=== PATIENT | female | born 1930 | race African-American/Black ===

== ENCOUNTER 2018-06-05 09:36 | Inpatient (IN) | payer MEDICARE, MEDICAID ==
[2018-06-05] MEDS ORDERED: Zolpidem Tartrate 5 MG TAB PO PRN (11:23)
[2018-06-05] MEDS ORDERED: Dextrose 50% Abboject 50 ML SYRINGE SLOW IVP PRN (11:23)
[2018-06-05] MEDS ORDERED: Acetaminophen 325 MG TAB PO PRN (11:23)
[2018-06-05] MEDS ORDERED: Dextrose 5% in Water 1,000 ML IV PRN (11:23)
[2018-06-05] MEDS ORDERED: Ondansetron ODT 4 MG TAB PO PRN (11:23)
--- NOTE | 2018-06-05 12:18 | HP ---
PRIMARY CARE PROVIDER: Dr. Cory Sandoval. HISTORY OF PRESENT ILLNESS: Referred to [facility] by [facility] for new onset congestive heart failure. The patient [facility] [place] She said she had mucus on her chest. She did not cough. She had no chest pain, no tightness. She said she had rattling in her chest, said it was worse lying down. No fever, no chills. PAST MEDICAL HISTORY: Pertinent for hypertension, hypothyroidism, diabetes mellitus type 2, gastroesophageal reflux disease. MEDICATIONS: She takes Citrucel 500 mg a day, levothyroxine 75 mcg a day, aspirin 81 mg a day, Lumigan ophthalmic, metformin 500 mg, amlodipine 5 mg a day, hydralazine 50 mg, gabapentin 300 mg. ALLERGIES: NO KNOWN DRUG ALLERGIES. PAST SURGICAL HISTORY: She had a chest surgery for a cyst on her lung. She has had a hysterectomy and bilateral cataract surgery. FAMILY HISTORY: Negative for coronary artery disease. She has diabetes and hypertension in multiple sons. She is for over 40 years. Full code status. Surrogate decision maker is her daughter, at bedside, Christy Saunders. SOCIAL HISTORY: No tobacco. No alcohol. No illicit drugs. REVIEW OF SYSTEMS: GENERAL: She has had a little dizziness. No fainting. No headache. She has had cataract surgery. She has glaucoma, but her vision is fine. EAR, NOSE, AND THROAT: No ear pain or drainage. No nasal bleeding. No trouble swallowing. CARDIORESPIRATORY: See present illness. RESPIRATORY: No wheezing. No history of asthma. No history of lung disease. GASTROINTESTINAL: No nausea, vomiting, diarrhea, or constipation. GENITOURINARY: No hematuria or dysuria. MUSCULOSKELETAL: She swells at times in her legs. No pain in her legs. NEUROLOGICAL: No strokes, seizures, or focal weakness. PSYCHIATRIC: No anxiety or depression, but she states she is forgetful at times. SKIN: No bruises, bleeding or rash. HEME/LYMPH: No tender or swollen lymph nodes in axilla, inguinal, or cervical area. PHYSICAL EXAMINATION: GENERAL: She is alert, cooperative, pleasant lady with family at bedside. VITAL SIGNS: Blood pressure 140/76, pulse 85, respirations 16, O2 saturation 98 on room air, temperature 98.2. HEAD, EYES, EARS, NOSE, AND THROAT: Revealed pupils equal and round with implants. Extraocular movements are intact. Tympanic membranes are occluded with wax. Oral hygiene is good. Mouth is wet. NECK: Supple without jugular venous distention, adenopathy, or thyromegaly. CHEST: Clear to auscultation and percussion. HEART: Regular rate and rhythm. First and second heart sounds are clear. There are no appreciated murmurs or gallops. ABDOMEN: Soft. Bowel sounds are normal. There is no hepatosplenomegaly. No mass. No rebound. EXTREMITIES: Reveal trace edema. No cyanosis. No clubbing. PULSES: Carotid, radial, femoral, and dorsalis pedis pulses are palpable and symmetric. SKIN: Warm and dry. HEME/LYMPH: No tender or swollen lymph nodes in the axilla, inguinal, or cervical area. NEUROLOGICAL: Cranial nerves 2 through 12 intact. Deep tendon reflexes diminished. Moves all extremities. IMAGING DATA: EKG; regular sinus rhythm, left bundle branch block. Chest x-ray; cardiomegaly, no pleural effusion noted, possible pulmonary vascular congestion reviewed by me. LABORATORY DATA: Hemoglobin 10.7, white count 6.4, and platelet count 197,000. Comprehensive metabolic profile; creatinine 1.24, BUN 20, lytes balanced. Bilirubin normal, AST 47, ALT 31. Troponins normal. BNP is 624. TSH is 3.6. ADMITTING DIAGNOSIS: 1. The patient referred for congestive heart failure, has a question of pulmonary vascular congestion on chest x-ray and a modestly elevated BNP. However, her O2 saturation is 98 on room air. Her chest is clear to exam. There is no gallop rhythm. We will obtain echocardiogram to rule out congestive heart failure. 2. Shortness of breath as before, O2 saturation 98 on room air. Chest, clear. 3. Diabetes mellitus type 2. 4. Chronic kidney disease 3 versus acute kidney failure. 5. Hypertension. 6. Hypothyroidism, stable on therapy. 7. Gastroesophageal reflux disease. PLAN: 1. Echocardiogram. 2. Repeat CBC, basic metabolic profile in the morning. 3. Accu-Chek sliding scale. 4. We will give one dose of Lasix 40 mg IV. We will put in the hospital on observation basis only if I see no criteria for admission. Respiratory rate is low, O2 saturation on room air is high. Cardiorespiratory exam is normal. Job ID: [id number]
[2018-06-05 13:09] VITALS: BMI 25.5
[2018-06-05 13:20] LABS: Hemoglobin A1c 7.6 % (4.0-6.0)
[2018-06-05] MEDS: HumaLOG 300 UNITS/3 ML VIAL SC PRN (14:35)
[2018-06-05] MEDS ORDERED: Acetaminophen 500 MG TAB PO PRN (19:28)
[2018-06-05] MEDS: Brinzolamide 1% Ophth Soln 10 ml Bottle EA EYE SCH (21:05)
[2018-06-05] MEDS: hydrALAZINE 25 MG TAB PO SCH (21:06)
[2018-06-05] MEDS: Meclizine HCl 12.5 MG TAB PO SCH (21:06)
[2018-06-05] MEDS: Gabapentin 300 MG CAP PO SCH (21:06)
[2018-06-05] MEDS: Latanoprost 0.005% Ophth Soln 2.5 ml Bottle EA EYE SCH (21:30)
[2018-06-06] MEDS: Levothyroxine Sodium 75 MCG TAB PO SCH (05:53)
[2018-06-06 07:14] LABS: #Lymphocytes 1.6 thou/uL (1.20-3.40); #Monocytes 0.4 thou/uL (0.11-0.59); #Neutrophils 1.8 thou/uL (1.40-6.50); %Basophils 0.9 % (0.0-1.0); %Eosinophils 0.1 % (0.0-10.0); %Lymphocytes 41.8 % (21.0-51.0); %Monocytes 10.5 % (0.0-10.0); %Neutrophils 46.7 % (42.0-75.0); Hemoglobin 10.1 g/dL (12.0-16.0); Mean Corpuscular HGB CONC 31.7 g/dL (32.0-36.0); Mean Corpuscular Hemoglobin 29.1 pg (27.0-31.0); Mean Corpuscular Volume 91.9 fL (78.0-98.0); Mean Platelet Volume 7.3 fL (7.4-10.4); Platelet Count 204 thou/uL (130-400); RBC Distribution Width 13.1 % (11.5-14.5); Red Blood Cell (RBC) Count 3.48 mill/uL (4.20-5.40); White Blood Cell (WBC) Count 3.8 thou/uL (4.8-10.8)
[2018-06-06 07:31] LABS: Anion Gap 12 mmol/L (10-20); BUN (Urea Nitrogen) 18 mg/dL (9.8-20.1); Calc. Creatinine Clearance 45 mL/min (70-130); Carbon Dioxide 25 mmol/L (23-31); Chloride 106 mmol/L (98-107); Estimated GFR-MDRD 66; Glucose 138 mg/dL (83-110); Potassium 3.5 mmol/L (3.5-5.1); Sodium 139 mmol/L (136-145)
[2018-06-06] MEDS ORDERED: Enoxaparin Sodium 40 MG/0.4 ML SYRINGE SC SCH (09:00)
[2018-06-06] MEDS ORDERED: Amlodipine 5 MG TAB PO SCH (09:00)
[2018-06-06] MEDS: metFORMIN 500 MG TAB PO SCH ×2 (09:28→16:50)
[2018-06-06] MEDS: Aspirin 81 mg Enteric Coated Tablet PO SCH (09:29)
[2018-06-06] MEDS: Gabapentin 300 MG CAP PO SCH ×3 (09:29→21:30)
[2018-06-06] MEDS: hydrALAZINE 25 MG TAB PO SCH ×3 (09:29→21:30)
[2018-06-06] MEDS: Meclizine HCl 12.5 MG TAB PO SCH ×2 (09:30→21:30)
[2018-06-06] MEDS: Brinzolamide 1% Ophth Soln 10 ml Bottle EA EYE SCH ×2 (10:21→21:29)
[2018-06-06] MEDS ORDERED: Furosemide 20 MG/2 ML VIAL SLOW IVP SCH (11:30)
[2018-06-06] MEDS: HumaLOG 300 UNITS/3 ML VIAL SC PRN (12:34)
--- NOTE | 2018-06-06 15:07 | PRG ---
DATE OF SERVICE: 06/06/2018 SUBJECTIVE: Ms. Yulisa uY is a very pleasant female with past medical history significant for hypertension, type 2 diabetes mellitus, hypothyroidism, and left bundle-branch block dating back to 2012, who presented to the hospital with complaints of worsening shortness of breath and cough. She has also been experiencing worsening lower extremity swelling. The patient has been admitted with new onset heart failure. The patient was given IV Lasix and reports that she has been voiding frequently, and her shortness of breath is improving. Her cough is improving as well. She denies any chest pain or dizziness at this time. OBJECTIVE: VITAL SIGNS: Blood pressure 135/70, pulse 73, O2 saturation is 97% on room air. GENERAL: This is a well-appearing female, in no acute distress. HEENT: Head is atraumatic and normocephalic. Mucous membranes are moist. Extraocular eye movements intact. NECK: No JVD. No carotid bruits. Trachea is midline. CV: S1 and S2. Regular rate and rhythm. Soft systolic murmur grade 1/6. LUNGS: Regular respiratory rate and pattern, overall clear to auscultation bilaterally. ABDOMEN: Soft. Positive bowel sounds. Nontender. EXTREMITIES: +1 pitting edema to mid noland. +2 DP pulses. SKIN: Warm and dry. No rashes. LABORATORY DATA: BNP 623. White blood cell count 3.8, hemoglobin 10.1, hematocrit 32, MCV 91. Sodium 139, potassium 3.5, chloride 106, carbon dioxide 25, BUN 18, creatinine 0.97, estimated GFR 66. Hemoglobin A1c is 7.6. Troponin is negative at 0.01. ASSESSMENT: 1. 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 2. Acute congestive heart failure exacerbation, improving with IV diuresis. 3. Type 2 diabetes mellitus, hemoglobin A1c is 7.6%. 4. Hypertension. 5. Hypothyroidism. 6. Chronic anemia. PLAN: At this time, we will consult Cardiology for optimization of heart failure medications and further workup. We will continue IV diuresis for now and monitoring electrolytes and I's and O's closely. Regarding anemia, we will go ahead and obtain iron studies, folate, and B12. Further recommendations based on hospital course. Care and plan discussed with Dr. Sun who agrees with the above. Job ID: [id number]
[2018-06-06] MEDS: Carvedilol 3.125 MG TAB PO SCH (16:50)
[2018-06-06] MEDS ORDERED: Communication Order-Pharmacy FS SCH (19:00)
--- NOTE | 2018-06-06 21:09 | CON ---
DATE OF CONSULTATION: 06/06/2018 REASON FOR CONSULTATION: Congestive heart failure, depressed left ventricular function. HISTORY OF PRESENT ILLNESS: Ms. Yu is a very pleasant 87-year-old woman admitted to the hospital with difficulty breathing. She is found to have severely depressed left ventricular function. I have been consulted. Ms. Yu came to the hospital yesterday and was having some difficulty breathing. Chest x-ray showed cephalization. She received diuretic therapy and felt better. Did not have chest pain or pressure. The patient is feeling better today, but the ejection fraction is found to be 15% to 20% on echocardiogram. PAST HISTORY: 1. Hypertension. 2. Hypothyroidism. 3. Diabetes. 4. Esophageal reflux. MEDICATIONS: 1. Citrucel. 2. Levothyroxine. 3. Aspirin. 4. Metformin. 5. Amlodipine. 6. Hydralazine. 7. Gabapentin. ALLERGIES: NONE KNOWN. PAST SURGICAL HISTORY: Cyst on her lung, hysterectomy, and bilateral cataract surgery. FAMILY HISTORY: Negative for heart disease at a young age. SOCIAL HISTORY: No tobacco. No alcohol. No drugs. REVIEW OF SYSTEMS: CONSTITUTIONAL: Feels some lightheadedness when she gets up quickly, also some vertigo-type symptoms. PULMONARY: No wheezing. CARDIAC: As outlined above. GASTROINTESTINAL: No nausea, vomiting, or diarrhea. SKIN: No rashes. NEUROLOGIC: No unilateral weakness or numbness. PSYCHIATRIC: No unusual depression or anxiety. HEMATOLOGIC: No unusual bruising. GENITOURINARY: No burning with urination. PHYSICAL EXAMINATION: GENERAL: This is a pleasant elderly woman, , in no distress. VITAL SIGNS: Blood pressure 112/63, pulse 80, it is regular. EYES: Sclerae nonicteric. MOUTH: Mucous membranes moist. NECK: Supple. No lymphadenopathy. LUNGS: Clear. CARDIAC: Normal S1, normal S2. There is no murmur, rub, or gallop. ABDOMEN: Soft and nontender. EXTREMITIES: No clubbing or cyanosis. There is no edema. SKIN: Warm and dry. Good peripheral pulses. DIAGNOSTIC DATA: EKG; sinus rhythm with a left bundle branch block pattern, QRS 0.15. Chest x-ray shows cardiomegaly with pulmonary vascular congestion. LABORATORY DATA: Potassium is 3.5. BUN is 18, creatinine 0.97. ASSESSMENT: 1. Congestive heart failure. 2. Suspect cardiomyopathy. 3. Left bundle branch block appears chronic. 4. Diabetes. 5. Hypertension. PLAN: 1. Stop amlodipine. 2. Substitute lisinopril. 3. Add carvedilol. 4. Continue hydralazine. 5. Recommend she proceed to cardiac catheterization. The patient agrees. 6. Discussed LifeVest. Discussed that she was at a small risk of sudden cardiac . Her yearly risk would be approximately 4% to 5%. Therefore, her 90-day risk would likely be in the 1% range. Looking back, this is probably a very chronic problem. She had a left bundle branch block in 2016. The patient declines LifeVest. Job ID: [id number]
[2018-06-06] MEDS: Latanoprost 0.005% Ophth Soln 2.5 ml Bottle EA EYE SCH (21:28)
[2018-06-06] MEDS: Lisinopril 5 MG TAB PO SCH (21:30)
[2018-06-07 05:53] LABS: Anion Gap 13 mmol/L (10-20); BUN (Urea Nitrogen) 24 mg/dL (9.8-20.1); Calc. Creatinine Clearance 32 mL/min (70-130); Calcium 9.2 mg/dL (7.8-10.44); Carbon Dioxide 24 mmol/L (23-31); Chloride 105 mmol/L (98-107); Estimated GFR-MDRD 46; Glucose 116 mg/dL (83-110); Iron 34 ug/dL (50-170); Potassium 3.6 mmol/L (3.5-5.1); Sodium 138 mmol/L (136-145)
[2018-06-07] MEDS ORDERED: Sodium Chloride 0.9% 1,000 ML IV SCH ×2 (06:00→10:00)
[2018-06-07] MEDS: Lisinopril 5 MG TAB PO SCH ×2 (06:02→21:41)
[2018-06-07] MEDS: Levothyroxine Sodium 75 MCG TAB PO SCH (06:02)
[2018-06-07] MEDS: Furosemide 20 MG/2 ML VIAL SLOW IVP SCH ×2 (06:02→15:05)
[2018-06-07] MEDS: Meclizine HCl 12.5 MG TAB PO SCH ×2 (06:04→21:13)
[2018-06-07] MEDS: Aspirin 81 mg Enteric Coated Tablet PO SCH (06:04)
[2018-06-07] MEDS: Carvedilol 3.125 MG TAB PO SCH (06:04)
[2018-06-07] MEDS: hydrALAZINE 25 MG TAB PO SCH ×3 (06:04→21:41)
[2018-06-07] MEDS: Gabapentin 300 MG CAP PO SCH ×3 (06:04→21:12)
[2018-06-07] MEDS: Brinzolamide 1% Ophth Soln 10 ml Bottle EA EYE SCH ×2 (06:06→21:40)
[2018-06-07 06:23] LABS: Folate (Folic Acid) 13.4 ng/mL (7.0-31.4)
[2018-06-07] MEDS ORDERED: Heparin 10,000 UNITS/1 ML VIAL ONE (08:43)
[2018-06-07] MEDS ORDERED: Nitroglycerin 100MG/250ML BOT 0 ML ONE (08:44)
[2018-06-07] MEDS ORDERED: Protamine Sulfate 50 MG/5 ML VIAL ONE (08:44)
[2018-06-07] MEDS ORDERED: Fentanyl 100 MCG/2 ML VIAL ONE (09:26)
[2018-06-07] MEDS ORDERED: Midazolam HCl 2 mg/2 ml Vial ONE (09:26)
[2018-06-07] MEDS ORDERED: Acetaminophen/Codeine 30-300mg Tablet PO PRN ×2 (09:59)
[2018-06-07] MEDS ORDERED: Nitroglycerin 0.4 MG TAB (25 Tab Bottle) SL PRN (09:59)
[2018-06-07] MEDS ORDERED: Sodium Chloride 0.9% 200 ML IV PRN (09:59)
--- NOTE | 2018-06-07 10:54 | PDOC.PN ---
- Subjective Encounter Start Date: 06/07/18 Encounter Start Time: 10:52 Subjective: No new complaint. Feeling better. -: S/p Cardiac cath. No chest pain. - Objective Resuscitation Status - Order Detail: 06/05/18 11:19 Resuscitation Status Routine Resuscitation Status: FULL: Full Resuscitation Discussed with: adriana decker Vital Signs & Weight: Vital Signs (12 hours) Temp Pulse Resp BP Pulse Ox 06/07/18 10:05 97.4 F L 66 14 103/56 L 96 06/07/18 07:50 98.1 F 73 18 103/55 L 97 06/07/18 04:00 97.8 F 75 17 121/56 L 98 Weight Weight 143 lb 3.2 oz I&O: 06/06/18 06/07/18 06/08/18 06:59 06:59 06:59 Intake Total 900 1952 Output Total 600 2300 Balance 300 -348 Result Diagrams: 06/06/18 06:37 06/07/18 04:46 Additional Labs: Accuchecks 06/07/18 06/06/18 06/06/18 05:28 20:08 17:02 POC Glucose 126 H 121 H 93 06/06/18 11:26 POC Glucose 239 H Phys Exam - Physical Examination Constitutional: NAD HEENT: PERRLA, moist MMs Neck: supple, full ROM Respiratory: no wheezing, no rales fair air entry bilaterally Cardiovascular: RRR soft systolic murmur noted Gastrointestinal: soft, non-tender, no distention, positive bowel sounds Musculoskeletal: no edema, pulses present Neurological: non-focal, moves all 4 limbs Psychiatric: normal affect, A&O x 3 Dx/Plan (1) Acute systolic (congestive) heart failure Code(s): I50.21 - ACUTE SYSTOLIC (CONGESTIVE) HEART FAILURE Status: Acute (2) Cardiomyopathy Code(s): I42.9 - CARDIOMYOPATHY, UNSPECIFIED Status: Acute Comment: S/p cardiac cath which showed normal coronaries. etiology is unclear. EF 15-20% (3) Moderate mitral regurgitation Code(s): I34.0 - NONRHEUMATIC MITRAL (VALVE) INSUFFICIENCY Status: Acute (4) HTN (hypertension) Code(s): I10 - ESSENTIAL (PRIMARY) HYPERTENSION Status: Acute (5) Diabetes mellitus Code(s): E11.9 - TYPE 2 DIABETES MELLITUS WITHOUT COMPLICATIONS Status: Acute (6) GERD (gastroesophageal reflux disease) Code(s): K21.9 - GASTRO-ESOPHAGEAL REFLUX DISEASE WITHOUT ESOPHAGITIS Status: Acute (7) Hypothyroidism Code(s): E03.9 - HYPOTHYROIDISM, UNSPECIFIED Status: Acute (8) CKD (chronic kidney disease), stage III Code(s): N18.3 - CHRONIC KIDNEY DISEASE, STAGE 3 (MODERATE) Status: Acute - Plan Continue IVF given Contrast study -: DC metformin. -: Continue lasix. lisinopril and coreg. -: Continue sliding scale insulin. -: Repeat renal function in the am. * .
[2018-06-07] MEDS ORDERED: Iopamidol 370 76% 100 ML VIAL ONE (11:22)
[2018-06-07] MEDS: Acetaminophen 500 MG TAB PO PRN (12:00)
[2018-06-07] MEDS ORDERED: metFORMIN 500 MG TAB PO SCH (17:00)
[2018-06-07] MEDS: Carvedilol 6.25 MG TAB PO SCH (17:46)
[2018-06-07] MEDS: HumaLOG 300 UNITS/3 ML VIAL SC PRN (17:54)
[2018-06-07] MEDS: Latanoprost 0.005% Ophth Soln 2.5 ml Bottle EA EYE SCH (21:11)
[2018-06-08] MEDS: Levothyroxine Sodium 75 MCG TAB PO SCH (05:22)
[2018-06-08 07:11] LABS: Anion Gap 11 mmol/L (10-20); BUN (Urea Nitrogen) 23 mg/dL (9.8-20.1); Calc. Creatinine Clearance 32 mL/min (70-130); Calcium 9.6 mg/dL (7.8-10.44); Carbon Dioxide 27 mmol/L (23-31); Chloride 105 mmol/L (98-107); Estimated GFR-MDRD 45; Glucose 125 mg/dL (83-110); Potassium 3.9 mmol/L (3.5-5.1); Sodium 139 mmol/L (136-145)
[2018-06-08] MEDS: Lisinopril 5 MG TAB PO SCH ×2 (08:32→21:42)
[2018-06-08] MEDS: Carvedilol 6.25 MG TAB PO SCH ×2 (08:32→17:12)
[2018-06-08] MEDS: Gabapentin 300 MG CAP PO SCH ×3 (08:33→21:44)
[2018-06-08] MEDS: Meclizine HCl 12.5 MG TAB PO SCH ×2 (08:33→21:43)
[2018-06-08] MEDS: hydrALAZINE 25 MG TAB PO SCH ×3 (08:33→21:45)
[2018-06-08] MEDS: Brinzolamide 1% Ophth Soln 10 ml Bottle EA EYE SCH ×2 (08:34→21:47)
[2018-06-08] MEDS: Acetaminophen 500 MG TAB PO PRN (08:40)
--- NOTE | 2018-06-08 10:01 | PDOC.PN ---
- Subjective Encounter Start Date: 06/08/18 Encounter Start Time: 10:00 Subjective: Complain of generalized body aches and weakness -: No SOB, chest pain or fever. - Objective Resuscitation Status - Order Detail: 06/05/18 11:19 Resuscitation Status Routine Resuscitation Status: FULL: Full Resuscitation Discussed with: adriana decker Vital Signs & Weight: Vital Signs (12 hours) Temp Pulse Resp BP Pulse Ox 06/08/18 08:38 99.8 F H 83 18 110/56 L 96 06/08/18 04:00 98.1 F 70 20 113/59 L 96 06/07/18 23:53 98.2 F 64 16 102/57 L 97 Weight Weight 145 lb 9 oz I&O: 06/07/18 06/08/18 06/09/18 06:59 06:59 06:59 Intake Total 1952 1200 Output Total 2300 850 Balance -348 350 Result Diagrams: 06/06/18 06:37 06/08/18 05:40 Additional Labs: Accuchecks 06/08/18 06/07/18 06/07/18 05:56 20:23 16:49 POC Glucose 157 H 211 H 155 H 06/07/18 11:36 POC Glucose 134 H Phys Exam - Physical Examination elderly female in no distress. fatigued HEENT: moist MMs Neck: supple Respiratory: no wheezing, no rhonchi fair air entry bilaterally with some transmitted sound Cardiovascular: RRR Gastrointestinal: soft, non-tender, no distention, positive bowel sounds Musculoskeletal: no edema, pulses present Neurological: non-focal, moves all 4 limbs Psychiatric: A&O x 3 Dx/Plan (1) Acute systolic (congestive) heart failure Code(s): I50.21 - ACUTE SYSTOLIC (CONGESTIVE) HEART FAILURE Status: Acute (2) Cardiomyopathy Code(s): I42.9 - CARDIOMYOPATHY, UNSPECIFIED Status: Acute Comment: S/p cardiac cath which showed normal coronaries. etiology is unclear. EF 15-20% (3) Moderate mitral regurgitation Code(s): I34.0 - NONRHEUMATIC MITRAL (VALVE) INSUFFICIENCY Status: Acute (4) HTN (hypertension) Code(s): I10 - ESSENTIAL (PRIMARY) HYPERTENSION Status: Acute (5) Diabetes mellitus Code(s): E11.9 - TYPE 2 DIABETES MELLITUS WITHOUT COMPLICATIONS Status: Acute (6) GERD (gastroesophageal reflux disease) Code(s): K21.9 - GASTRO-ESOPHAGEAL REFLUX DISEASE WITHOUT ESOPHAGITIS Status: Acute (7) Hypothyroidism Code(s): E03.9 - HYPOTHYROIDISM, UNSPECIFIED Status: Acute (8) CKD (chronic kidney disease), stage III Code(s): N18.3 - CHRONIC KIDNEY DISEASE, STAGE 3 (MODERATE) Status: Acute Comment: Stable (9) Physical deconditioning Code(s): R53.81 - OTHER MALAISE Status: Acute - Plan Continue current medications -: consult PT -: continue to monitor renal function, -: patient now wants life vest. Will relay to cardioogy. -: Consult case mgt to help with discharge disposition * .
[2018-06-08] MEDS: HumaLOG 300 UNITS/3 ML VIAL SC PRN (12:16)
--- NOTE | 2018-06-08 14:10 | PDOC.CTH ---
Cardiology Progress Note - Subjective She is doing well. Breathing at baseline. - Objective Vital Signs Temp Pulse Pulse Resp BP BP BP 06/08/18 12:14 107/55 L 06/08/18 12:05 99.3 F 88 16 101/55 L 06/08/18 10:49 84 103/56 L 128/61 06/08/18 08:38 99.8 F H 83 18 110/56 L 06/08/18 04:00 98.1 F 70 20 113/59 L BP BP Pulse Ox 06/08/18 12:14 102/52 L 108/59 L 06/08/18 12:05 98 06/08/18 10:49 06/08/18 08:38 96 06/08/18 04:00 96 Weight 145 lb 9 oz 06/07/18 06/08/18 06/09/18 06:59 06:59 06:59 Intake Total 1952 1200 Output Total 2300 850 Balance -348 350 - Physical Examination General/Neuro: alert & oriented x3, NAD Neck: no JVD present Lungs: CTA, unlabored respirations Heart: RRR Abdomen: NT/ND Extremities: + edema B (trace) - Telemetry Telemetry Rhythm: NSR - Labs Result Diagrams: 06/06/18 06:37 06/08/18 05:40 Troponin/CKMB Troponin I 0.010 ng/mL (< 0.028) 06/05/18 10:28 - Assessment/Plan 1. DilatedCM EF at 154-20% 2. Non ischemic CM 3. Normal coronaries. PLAN: - Lifevest before discharge - Continue current meds. - Follow up with in 1-2 months - Home after lifevest set up.
[2018-06-08] MEDS: Latanoprost 0.005% Ophth Soln 2.5 ml Bottle EA EYE SCH (21:47)
[2018-06-09] MEDS: Levothyroxine Sodium 75 MCG TAB PO SCH (06:02)
[2018-06-09 06:08] LABS: #Lymphocytes 2.2 thou/uL (1.20-3.40); #Monocytes 0.6 thou/uL (0.11-0.59); #Neutrophils 2.7 thou/uL (1.40-6.50); %Basophils 0.6 % (0.0-1.0); %Lymphocytes 39.6 % (21.0-51.0); %Monocytes 11.1 % (0.0-10.0); %Neutrophils 48.6 % (42.0-75.0); Hemoglobin 10.4 g/dL (12.0-16.0); Mean Corpuscular HGB CONC 32.5 g/dL (32.0-36.0); Mean Corpuscular Hemoglobin 29.4 pg (27.0-31.0); Mean Corpuscular Volume 90.5 fL (78.0-98.0); Mean Platelet Volume 7.5 fL (7.4-10.4); Platelet Count 192 thou/uL (130-400); RBC Distribution Width 13.2 % (11.5-14.5); Red Blood Cell (RBC) Count 3.55 mill/uL (4.20-5.40); White Blood Cell (WBC) Count 5.5 thou/uL (4.8-10.8)
[2018-06-09 06:25] LABS: Anion Gap 12 mmol/L (10-20); BUN (Urea Nitrogen) 28 mg/dL (9.8-20.1); Calc. Creatinine Clearance 30 mL/min (70-130); Calcium 9.2 mg/dL (7.8-10.44); Carbon Dioxide 26 mmol/L (23-31); Chloride 105 mmol/L (98-107); Estimated GFR-MDRD 42; Glucose 128 mg/dL (83-110); Potassium 3.6 mmol/L (3.5-5.1); Sodium 139 mmol/L (136-145)
--- NOTE | 2018-06-09 08:53 | PDOC.PN ---
- Subjective Encounter Start Date: 06/09/18 Encounter Start Time: 08:51 Subjective: No new problem. -: had lifevrest fitted yesterday. -: Denied chest pain or SOB. Admitted to fatigued - Objective Resuscitation Status - Order Detail: 06/05/18 11:19 Resuscitation Status Routine Resuscitation Status: FULL: Full Resuscitation Discussed with: adriana decker Vital Signs & Weight: Vital Signs (12 hours) Temp Pulse Resp BP Pulse Ox 06/09/18 04:00 97.6 F 72 16 103/55 L 99 Weight Weight 145 lb 9 oz I&O: 06/08/18 06/09/18 06/10/18 06:59 06:59 06:59 Intake Total 1200 987 Output Total 850 1280 Balance 350 -293 Result Diagrams: 06/09/18 05:36 06/09/18 05:36 Additional Labs: Accuchecks 06/09/18 06/08/18 06/08/18 05:47 20:37 16:36 POC Glucose 134 H 189 H 115 H 06/08/18 10:30 POC Glucose 270 H Phys Exam - Physical Examination elderly female in no distress. afenrile anicteric and acyanotic. HEENT: moist MMs Neck: no JVD, supple Respiratory: no rhonchi Fair air entry with right base crackles posteriorly Cardiovascular: RRR Gastrointestinal: soft, non-tender, no distention, positive bowel sounds Musculoskeletal: no edema, pulses present Neurological: non-focal, moves all 4 limbs ambulant with unsteady gait Psychiatric: A&O x 3 Dx/Plan (1) Acute systolic (congestive) heart failure Code(s): I50.21 - ACUTE SYSTOLIC (CONGESTIVE) HEART FAILURE Status: Acute Comment: EF of 15-10 (2) Cardiomyopathy Code(s): I42.9 - CARDIOMYOPATHY, UNSPECIFIED Status: Acute Comment: S/p cardiac cath which showed normal coronaries. etiology is unclear. EF 15-20% (3) Moderate mitral regurgitation Code(s): I34.0 - NONRHEUMATIC MITRAL (VALVE) INSUFFICIENCY Status: Acute (4) HTN (hypertension) Code(s): I10 - ESSENTIAL (PRIMARY) HYPERTENSION Status: Acute (5) Diabetes mellitus Code(s): E11.9 - TYPE 2 DIABETES MELLITUS WITHOUT COMPLICATIONS Status: Acute (6) GERD (gastroesophageal reflux disease) Code(s): K21.9 - GASTRO-ESOPHAGEAL REFLUX DISEASE WITHOUT ESOPHAGITIS Status: Acute (7) Hypothyroidism Code(s): E03.9 - HYPOTHYROIDISM, UNSPECIFIED Status: Acute (8) CKD (chronic kidney disease), stage III Code(s): N18.3 - CHRONIC KIDNEY DISEASE, STAGE 3 (MODERATE) Status: Acute Comment: Stable (9) Physical deconditioning Code(s): R53.81 - OTHER MALAISE Status: Acute (10) Gait instability Code(s): R26.81 - UNSTEADINESS ON FEET Status: Acute - Plan increase lisinopril to 10 bid. DC hydralazine with a view to optimize ACEI -: Continue coreg. -: Started ASA. -: Awaiting PT eval. -: patient lives alone. Open to SNF before returning home. Monitor renal funct * .
[2018-06-09] MEDS: Gabapentin 300 MG CAP PO SCH ×3 (09:43→20:56)
[2018-06-09] MEDS: Meclizine HCl 12.5 MG TAB PO SCH ×2 (09:43→20:55)
[2018-06-09] MEDS: Furosemide 20 MG TAB PO SCH (09:44)
[2018-06-09] MEDS: Brinzolamide 1% Ophth Soln 10 ml Bottle EA EYE SCH ×2 (09:44→20:53)
[2018-06-09] MEDS: Carvedilol 6.25 MG TAB PO SCH ×2 (09:44→17:44)
[2018-06-09] MEDS: HumaLOG 300 UNITS/3 ML VIAL SC PRN (13:43)
[2018-06-09] MEDS: Lisinopril 10 MG TAB PO SCH ×2 (13:59→20:55)
[2018-06-09] MEDS: Aspirin 81 mg Enteric Coated Tablet PO SCH (13:59)
--- NOTE | 2018-06-09 17:16 | PDOC.CTH ---
Cardiology Progress Note - Subjective No new issues. Breathing at baseline. Had her LIfevest fitted and her hands are too weak to change the batteries on the lifevest. - Objective Vital Signs Temp Pulse Pulse Pulse Resp BP BP 06/09/18 13:41 98.2 F 78 18 06/09/18 10:39 80 82 120/57 L 106/56 L 06/09/18 08:00 97.4 F L 75 18 BP BP Pulse Ox 06/09/18 13:41 109/58 L 98 06/09/18 10:39 06/09/18 08:00 125/60 96 Weight 145 lb 9 oz 06/08/18 06/09/18 06/10/18 06:59 06:59 06:59 Intake Total 1200 987 480 Output Total 850 1280 Balance 350 -293 480 - Physical Examination General/Neuro: alert & oriented x3, NAD Neck: no JVD present Lungs: unlabored respirations Heart: RRR Abdomen: NT/ND Extremities: other: (no edema) - Telemetry Telemetry Rhythm: NSR - Labs Result Diagrams: 06/09/18 05:36 06/09/18 05:36 Troponin/CKMB Troponin I 0.010 ng/mL (< 0.028) 06/05/18 10:28 - Assessment/Plan 1. DilatedCM EF at 15-20% 2. Non ischemic CM 3. Normal coronaries. PLAN: - Lifevest in place, she will go to inpatient rehab vs SNF and hopefully she will get strong enough to change the battery on the lifevest, if this is not the case then she will take off copm[pletely and go home without is. - Continue current meds. - Follow up with in 1-2 months - Placement.
[2018-06-09] MEDS: Latanoprost 0.005% Ophth Soln 2.5 ml Bottle EA EYE SCH (20:58)
[2018-06-10] MEDS: Levothyroxine Sodium 75 MCG TAB PO SCH (05:56)
[2018-06-10 07:09] LABS: Anion Gap 11 mmol/L (10-20); BUN (Urea Nitrogen) 26 mg/dL (9.8-20.1); Calc. Creatinine Clearance 35 mL/min (70-130); Calcium 9.3 mg/dL (7.8-10.44); Carbon Dioxide 27 mmol/L (23-31); Chloride 106 mmol/L (98-107); Estimated GFR-MDRD 50; Glucose 158 mg/dL (83-110); Potassium 3.8 mmol/L (3.5-5.1); Sodium 140 mmol/L (136-145)
[2018-06-10] MEDS: Carvedilol 6.25 MG TAB PO SCH ×2 (08:31→16:08)
[2018-06-10] MEDS: Aspirin 81 mg Enteric Coated Tablet PO SCH (08:31)
[2018-06-10] MEDS: Lisinopril 10 MG TAB PO SCH (08:31)
[2018-06-10] MEDS: Gabapentin 300 MG CAP PO SCH ×2 (08:31→11:24)
[2018-06-10] MEDS: Meclizine HCl 12.5 MG TAB PO SCH (08:31)
[2018-06-10] MEDS: Furosemide 20 MG TAB PO SCH (08:31)
[2018-06-10] MEDS: Brinzolamide 1% Ophth Soln 10 ml Bottle EA EYE SCH (08:32)
--- NOTE | 2018-06-10 10:21 | PRG ---
DATE OF SERVICE: 06/10/2018 SUBJECTIVE: Ms. Yu is feeling fine. No chest pain or pressure. OBJECTIVE: VITAL SIGNS: Her blood pressure is 126/67, pulse is 80, it is regular. LUNGS: Clear. CARDIAC: Normal S1, normal S2. ABDOMEN: Soft, nontender. EXTREMITIES: There is no edema. LABORATORY DATA: The creatinine is 1.23. ASSESSMENT: 1. Congestive heart failure, systolic, acute on chronic, now stable. 2. Renal function stabilized. Creatinine down to 1.23. 3. Left bundle-branch block. PLAN: 1. She has been fitted for LifeVest. 2. She is on carvedilol 6.25 mg twice a day. 3. Furosemide 20 mg a day. 4. Lisinopril 10 mg twice a day. 5. She is going to go to a swing bed. I would like her to come see us in the office in about a month with ultimately consideration for biventricular pacemaker defibrillator. 6. If tolerated, we will try to increase the carvedilol to 12.5 mg twice a day in the next followup. Job ID: [id number]
[2018-06-10] MEDS: HumaLOG 300 UNITS/3 ML VIAL SC PRN (12:16)
--- NOTE | 2018-06-10 15:30 | PDOC.PN ---
- Subjective Encounter Start Date: 06/10/18 Encounter Start Time: 09:00 Subjective: no chest pain or sob -: feels better - Objective Resuscitation Status - Order Detail: 06/05/18 11:19 Resuscitation Status Routine Resuscitation Status: FULL: Full Resuscitation Discussed with: adriana CASILLAS Reviewed: Yes Vital Signs & Weight: Vital Signs (12 hours) Temp Pulse Pulse Pulse Resp BP BP 06/10/18 11:25 98.2 F 74 17 06/10/18 09:42 85 80 118/60 125/83 06/10/18 07:30 97.6 F 83 16 06/10/18 03:31 98.2 F 80 18 BP BP Pulse Ox 06/10/18 11:25 90/52 L 100 06/10/18 09:42 06/10/18 07:30 126/67 98 06/10/18 03:31 130/60 97 Weight Weight 147 lb I&O: 06/09/18 06/10/18 06/11/18 06:59 06:59 06:59 Intake Total 987 1330 Output Total 1280 1450 Balance -293 -120 Result Diagrams: 06/09/18 05:36 06/10/18 06:26 Additional Labs: Accuchecks 06/10/18 06/10/18 06/09/18 10:57 05:33 20:23 POC Glucose 338 H 137 H 270 H 06/09/18 16:55 POC Glucose 74 Phys Exam - Physical Examination HEENT: PERRLA, moist MMs Neck: no JVD, supple Respiratory: no wheezing, no rales Cardiovascular: RRR, no significant murmur Gastrointestinal: soft, non-tender, positive bowel sounds Musculoskeletal: no edema, pulses present Neurological: non-focal, moves all 4 limbs Psychiatric: normal affect, A&O x 3 Dx/Plan (1) Acute systolic (congestive) heart failure Code(s): I50.21 - ACUTE SYSTOLIC (CONGESTIVE) HEART FAILURE Status: Acute Comment: EF of 15-10 (2) Cardiomyopathy Code(s): I42.9 - CARDIOMYOPATHY, UNSPECIFIED Status: Acute Comment: S/p cardiac cath which showed normal coronaries. etiology is unclear. EF 15-20% (3) Diabetes mellitus Code(s): E11.9 - TYPE 2 DIABETES MELLITUS WITHOUT COMPLICATIONS Status: Chronic Qualifiers: Diabetes mellitus type: type 2 Diabetes mellitus moth exterminator insulin use: without moth exterminator use (4) GERD (gastroesophageal reflux disease) Code(s): K21.9 - GASTRO-ESOPHAGEAL REFLUX DISEASE WITHOUT ESOPHAGITIS Status: Chronic Qualifiers: Esophagitis presence: esophagitis presence not specified Qualified Code(s) : K21.9 - Gastro-esophageal reflux disease without esophagitis (5) HTN (hypertension) Code(s): I10 - ESSENTIAL (PRIMARY) HYPERTENSION Status: Chronic Qualifiers: Hypertension type: essential hypertension Qualified Code(s): I10 - Essential (primary) hypertension (6) Hypothyroidism Code(s): E03.9 - HYPOTHYROIDISM, UNSPECIFIED Status: Chronic Qualifiers: Hypothyroidism type: unspecified Qualified Code(s): E03.9 - Hypothyroidism , unspecified (7) Moderate mitral regurgitation Code(s): I34.0 - NONRHEUMATIC MITRAL (VALVE) INSUFFICIENCY Status: Chronic (8) Physical deconditioning Code(s): R53.81 - OTHER MALAISE Status: Acute - Plan hemostable -: is wearing lifevest, sometimes feels its heavy around her -: dc plan to [facility] today -: meds reconciled, she has ambulated around 150ft with rw -: on asp, coreg, lisinopril. No diuretics due to low sbp * . may decrease lisinopril to 5mg daily if still hypotensive at [facility]. Review of Systems - Medications/Allergies Allergies/Adverse Reactions: Allergies Allergy/AdvReac Type Severity Reaction Status Date / Time No Known Drug Allergies Allergy Verified 06/05/18 14:11 Medications: Current Medications Acetaminophen (Tylenol) 500 mg PO Q6H PRN PRN Reason: Headache/Fever Last Admin: 06/08/18 08:40 Dose: 500 mg Acetaminophen/Codeine Phosphate (Tylenol #3) 1 tab PO Q4H PRN PRN Reason: Mild Pain (1-3) Last Admin: 06/10/18 10:16 Dose: 1 tab Acetaminophen/Codeine Phosphate (Tylenol #3) 2 tab PO Q4H PRN PRN Reason: Moderate Pain (4-6) Aspirin (Ecotrin) 81 mg PO DAILY [facility] Last Admin: 06/10/18 08:31 Dose: 81 mg Brinzolamide (Azopt 1% Ophth Soln) 0 drop EA EYE BID [facility] Last Admin: 06/10/18 08:32 Dose: 1 drop Carvedilol (Coreg) 6.25 mg PO BID[facility] Last Admin: 06/10/18 08:31 Dose: 6.25 mg Dextrose/Water (Dextrose 50%) 25 gm SLOW IVP PRN PRN PRN Reason: Hypoglycemia Furosemide (Lasix) 20 mg PO DAILY [facility] Last Admin: 06/10/18 08:31 Dose: 20 mg Gabapentin (Neurontin) 300 mg PO 0900,1200 [facility] Last Admin: 06/10/18 11:24 Dose: 300 mg Gabapentin (Neurontin) 600 mg PO [facility] Last Admin: 06/09/18 20:56 Dose: 600 mg Glucagon (Glucagon) 1 mg IM PRN PRN PRN Reason: Hypoglycemia Dextrose/Water (D5w) 1,000 mls @ 0 mls/hr IV .Q0M PRN PRN Reason: Hypoglycemia Insulin Human Lispro (Humalog) 0 units SC .MILD SLIDING SCALE PRN PRN Reason: Mild Correctional Scale Last Admin: 06/10/18 12:16 Dose: 5 unit Latanoprost (Xalatan 0.005% Oph Soln) 1 drop EA EYE [facility] Last Admin: 06/09/18 20:58 Dose: 1 drop Levothyroxine Sodium (Synthroid) 75 mcg PO 0600 [facility] Last Admin: 06/10/18 05:56 Dose: 75 mcg Lisinopril (Zestril) 10 mg PO BID [facility] Last Admin: 06/10/18 08:31 Dose: 10 mg Meclizine HCl (Antivert) 12.5 mg PO BID [facility] Last Admin: 06/10/18 08:31 Dose: 12.5 mg Nitroglycerin (Nitrostat) 0.4 mg SL Q5MIN PRN PRN Reason: Chest Pain Ondansetron HCl (Zofran Odt) 4 mg PO Q6H PRN PRN Reason: Nausea/Vomiting Pantoprazole Sodium (Protonix) 40 mg PO DAILYPRN PRN PRN Reason: Dyspepsia Zolpidem Tartrate (Ambien) 5 mg PO HSPRN PRN PRN Reason: Insomnia Last Admin: 06/05/18 21:06 Dose: 5 mg
[2018-06-10 15:31] VITALS: BP 114/66; TEMP 97.7
--- NOTE | 2018-06-11 11:20 | DIS ---
DATE OF ADMISSION: 06/06/2018 DATE OF DISCHARGE: 06/10/2018 DISCHARGE DISPOSITION: To [facility]. PRIMARY DISCHARGE DIAGNOSES: Acute congestive heart failure exacerbation with ejection fraction of 15%, nonischemic cardiomyopathy, diabetes mellitus type 2, gastroesophageal reflux disease, hypertension, hypothyroidism, moderate mitral regurgitation, and deconditioning. PROCEDURES DONE DURING HOSPITALIZATION: Echo with 2D Doppler done showed EF of 15% to 20%, left ventricular size was [id number] increased, moderate mitral regurgitation was seen. Coronary angiogram done by Dr. Seals showed normal coronaries. LABORATORY DATA: H and H 10 and 32, platelet count 192, and MCV is 90. Discharge BUN and creatinine are 26 and 1.2. Vitamin B12 of 404, folic acid 13.4, and TSH 3.45. BNP was 623. HbA1c 7.6. DISCHARGE MEDICATIONS: 1. Aspirin 81 mg p.o. daily. 2. Lumigan eye drops to both eyes at bedtime. 3. Azopt eye drop to both eyes twice daily. 4. Gabapentin 300 mg q.a.m. and 600 mg p.o. at bedtime. 5. Levothyroxine 75 mcg p.o. q.a.m. 6. Meclizine 12.5 mg twice daily. 7. Metformin 500 mg p.o. twice daily. 8. Omeprazole 20 mg p.o. daily. 9. Coreg 6.25 mg p.o. twice daily. 10. Lisinopril 10 mg twice daily. 11. Ferrous sulfate 325 mg p.o. daily. ALLERGIES: NO KNOWN DRUG ALLERGIES. DISCHARGE PLAN: The patient to follow up with Dr. Clemons as advised and primary care physician in 1 week. BRIEF COURSE DURING HOSPITALIZATION: The patient initially got admitted on the after she went to [facility] with complaints of weakness and dizziness. She also had shortness of breath. The patient was found to be in CHF exacerbation. She has had echo done, which showed ejection fraction of 15% to 20%. The patient has had consultation with Dr. Clemons/Arnel. The patient had coronary angiogram done due to new onset congestive heart failure and was found to have had normal coronaries. The patient likely has nonischemic cardiomyopathy with EF of 15%. A LifeVest was placed on her. Her medications have been optimized. The patient has deconditioning and she is being discharged to [facility] prior to going home. She is hemodynamically stable. Please see a [id number] documentation for the day of discharge on [employer]. A total of 35 minutes was spent on discharge plan. Job ID: [id number]
== END 2018-06-10 17:02 | DRG 286 ==
LOC: ERS 09:36 → ERHOLD 11:02 → 2SW 12:58 → OBSVTOIN 06-06 14:16 → 2NO 06-06 17:56
PROVIDERS: ADMIT Internal Medicine; ATTEND Internal Medicine
PROC: 4A023N7 Measurement of Cardiac Sampling and Pressure, Left Heart, Percutaneous Approach (ICD-10-PCS; principal; 2018-06-06)
PROC: B2111ZZ Fluoroscopy of Multiple Coronary Arteries using Low Osmolar Contrast (ICD-10-PCS; 2018-06-06)
DX: I42.0 Dilated cardiomyopathy (principal); I50.23 Acute on chronic systolic (congestive) heart failure; I13.0 Hypertensive heart and chronic kidney disease with heart failure and stage 1 through stage 4 chronic kidney disease, or unspecified chronic kidney disease; E11.22 Type 2 diabetes mellitus with diabetic chronic kidney disease; E03.9 Hypothyroidism, unspecified; K21.9 Gastro-esophageal reflux disease without esophagitis; I44.7 Left bundle-branch block, unspecified; N18.3 Chronic kidney disease, stage 3 (moderate); I34.0 Nonrheumatic mitral (valve) insufficiency; R26.81 Unsteadiness on feet
CPT/HCPCS: 36415; 36416; 80048; 82607; 82746; 83036; 83540; 84484; 85025; 93306; 93454; 93798; 94760; 99152; C1769; J1644; J1650; J1940; J2250; J2720; J3010; J8597; Q0162; Q9967